=== PATIENT | female | born 1990 | race Asian ===

== ENCOUNTER 2019-10-11 08:02 | Inpatient (IN) ==
[2019-10-11] MEDS: LACTATED RINGER'S 1,000 ML IV PRN ×3 (11:00→12:18)
[2019-10-11] MEDS ORDERED: OXYTOCIN 30 UNITS/500 ML BAG IV PRN ×3 (11:03→19:27)
[2019-10-11] MEDS ORDERED: BUPIVACAINE 0.25% 30 ML VIAL ONE (11:18)
[2019-10-11] MEDS ORDERED: fentaNYL citrate 100 MCG/2 ML VIAL ONE (11:18)
[2019-10-11] MEDS ORDERED: ePHEDrine sulfate 50 MG/ML AMP ONE (11:18)
[2019-10-11] MEDS ORDERED: fentaNYL 2MCG/ML ROPIV 1.25MG/ML 100 ML BAG EPI ONE (11:18)
--- NOTE | 2019-10-11 11:23 | History & Physical Report ---
Date of Service October 11, 2019 Assessment & Plan (1) : Contractions have been getting more painful during her monitoring, cervix has changed, patient is asking for epidural. Will admit for labor. EFM/toco. IVF. labs. She is likely going to get an epidural. History of Present Illness Chief Complaint: labor Primary Care Provider: Mitzy Bowers MD 29yo @ 37 3/7 with regular ctx. No leaking of fluid, no vaginal bleeding. + movement. uncomplicated. Allergies Allergy/AdvReac Type Severity Reaction Status Date / Time No Known Drug Allergies Allergy none Verified 10/11/19 08:22 Home Medications Home Medications Medication Instructions Recorded Confirmed Type PNV cmb#95-ferrous fumarate-FA 1 tab PO DAILY 10/11/19 10/11/19 History [] Patient History Social History (Updated 05/04/19 @ 12:09 by Ute Wayne MD) Preferred Language: Kazakh Calenderer Required: No Beliefs That Will Affect Care: None marital status: Single marital status details: Same FOB of all pregnancies Current Living Situation: Significant Other Current Living Situation Comment: FOB and their two kids current occupational status: employed 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 Constitutional: WD/WN, vitals as above Respiratory: normal respiratory effort, lungs clear to auscultation no respiratory distress Cardiovascular: Rate/Rhythm: regular rate and regular rhythm Gastrointestinal (Abdomen): Inspection/Auscultation: abdomen normal to inspection Percussion/Palpation: abdomen soft; abdomen nontender Gravid. No s/s chorio or abruption. Skin: no rashes, warm and dry Psychiatric: A+Ox3, euthymic affect Results & Data Vital Signs (Past 12 Hours) Vital Signs Temp Pulse Resp BP 10/11/19 10:48 90 103/60 10/11/19 10:47 20 10/11/19 08:21 36.7 C 16 10/11/19 08:19 107 H 109/73
--- NOTE | 2019-10-11 11:35 | Anesthesiology Consultation ---
Date of Service October 11, 2019 Assessment & Plan Chart Review Chart Review: Acceptable Risk for Labor Epidural ASA ASA2 Proposed Anesthesia Anesthesia Type: Labor Epidural Risk / Benefits Reviewed With: PT / POA / Parent / Guardian, Accepts Plan and Informed Consent Obtained History Height/Weight Height: 5 ft 6 in Weight: 70.307 kg Allergies Allergy/AdvReac Type Severity Reaction Status Date / Time No Known Drug Allergies Allergy none Verified 10/11/19 08:22 Medications Home Medications Medication Instructions Recorded Confirmed Last Taken PNV cmb#95-ferrous fumarate-FA 1 tab PO DAILY 10/11/19 10/11/19 10/10/19 08:00 [] Past Medical History Medical History History of chlamydia Past Family History Family History Father Asthma Brother Asthma Social History Smoking Status: Former smoker Hx Alcohol Use: No Hx Substance Use: No Review of Systems denies fever/cough/ colds/ chest pain/ SOB/ JAZMIN denies CT/CVA/Seizure Physical Exam Vital Signs Last Vital Signs Temp 36.7 C 10/11/19 08:21 Pulse 93 H 10/11/19 11:56 Resp 20 10/11/19 10:47 BP 104/59 L 10/11/19 11:56 Pulse Ox 100 10/11/19 11:55 Testing Laboratory Results 10/11/19 11:24
[2019-10-11 11:37] LABS: Hemoglobin 10.4 g/dL (12.0-16.0); Mean Corpuscular Hemoglobin 30.1 pg (25-34); Mean Corpuscular Volume 92.5 fL (80-100); Mean Platelet Volume 10.4 fL (7.4-10.4); Platelet Count 213 K/uL (130-400); RDW Coefficient of Variation 13.7 % (11.5-14.5); Red Blood Count 3.46 M/uL (4.2-5.4); White Blood Count 11.93 K/uL (4.8-10.8)
[2019-10-11 11:39] LABS: Mean Corpuscular Hgb Conc 32.5 g/dL (32-36)
[2019-10-11] MEDS ORDERED: NALOXONE HCL 1 MG in SODIUM CHLORIDE 0.9% 1000ML 1,000 ML IV PRN (11:59)
[2019-10-11] MEDS ORDERED: ONDANSETRON INJ 2 MG/ML 2 ML VIAL IV PRN (11:59)
[2019-10-11] MEDS ORDERED: NALBUPHINE HCL INJ 10 MG/ML AMP IV PRN (11:59)
[2019-10-11] MEDS ORDERED: NALOXONE HCL 0.4 MG/1 ML VIAL/CARP IV PRN (11:59)
[2019-10-11] MEDS ORDERED: ePHEDrine sulfate 50 MG/ML AMP IV PRN (11:59)
[2019-10-11] MEDS ORDERED: DiphenhydrAMINE HCL 50 MG/ML VIAL IV PRN (11:59)
[2019-10-11] MEDS ORDERED: fentaNYL 2MCG/ML ROPIV 1.25MG/ML 100 ML BAG EPI PRN (11:59)
--- NOTE | 2019-10-11 13:59 | Obstetrical Progress Note ---
Date of Service October 11, 2019 Subjective Comfortable with epidural. FHT Cat 1 Reform - spaced out. SVE 5/70/-2. AROM clear fluid. Results & Data Vital Signs (Past 12 Hours) Vital Signs Temp Pulse Resp BP Pulse Ox 10/11/19 13:55 97 H 100 10/11/19 13:50 107 H 100 10/11/19 13:45 100 H 106/61 100 10/11/19 13:40 93 H 100 10/11/19 13:35 105 H 100 10/11/19 13:34 106 H 94/58 L 10/11/19 13:30 89 100 10/11/19 13:26 107 H 88/54 L 10/11/19 13:25 97 H 100 10/11/19 13:24 94 H 97/58 L 10/11/19 13:20 104 H 99 10/11/19 13:16 80 99/59 L 10/11/19 13:15 84 100 10/11/19 13:11 97 H 93/55 L 10/11/19 13:10 100 H 100 10/11/19 13:07 88 100/57 L 10/11/19 13:05 96 H 100 10/11/19 13:01 100 H 96/58 L 10/11/19 13:00 80 16 99 10/11/19 12:56 96 H 91/53 L 10/11/19 12:55 95 H 98 10/11/19 12:52 85 98/58 L 10/11/19 12:50 89 99 10/11/19 12:47 90 97/57 L 10/11/19 12:45 112 H 16 96 10/11/19 12:41 100 H 103/59 L 10/11/19 12:40 87 99 10/11/19 12:37 97 H 104/59 L 10/11/19 12:35 99 H 100 10/11/19 12:31 89 87/53 L 10/11/19 12:30 101 H 16 99 10/11/19 12:27 93 H 101/58 L 10/11/19 12:25 100 H 100/61 100 10/11/19 12:22 95 H 86/51 L 10/11/19 12:20 109 H 100 10/11/19 12:17 90 106/61 10/11/19 12:15 91 H 16 100 10/11/19 12:12 88 109/61 10/11/19 12:10 98 H 100 10/11/19 12:05 100 H 100 10/11/19 12:04 104 H 112/66 10/11/19 12:02 96 H 110/59 L 10/11/19 12:00 36.8 C 89 18 107/59 L 100 10/11/19 11:58 89 103/60 10/11/19 11:56 93 H 104/59 L 10/11/19 11:55 87 100 10/11/19 11:54 105 H 107/60 10/11/19 11:53 88 100/58 L 10/11/19 11:50 94 H 107/58 L 100 10/11/19 11:45 100 H 100 10/11/19 11:40 105 H 100 10/11/19 11:32 89 100 10/11/19 10:48 90 103/60 10/11/19 10:47 20 10/11/19 08:21 36.7 C 16 10/11/19 08:19 107 H 109/73 PG Care Time/CCT Total # of Minutes Spent Total Time Spent with Patient: Total time spent is greater than 50% in coordination of care (as documented) at patient's floor/unit and/or counseling patient:
--- NOTE | 2019-10-11 19:19 | Delivery Summary ---
Vaginal Delivery Summary Date of Service October 11, 2019 Vaginal Delivery Summary Vaginal Delivery Summary: Pre-delivery diagnoses: 29yo @ 37 12/07, spontaneous labor Post-delivery diagnoses: same Procedure: spontaneous vaginal delivery Surgeon: Pilar Wen DO Complications: none Findings: Viable male . Apgars: 9/9 . Weight pending, please see nursery records Estimated blood loss: 300ml Description of delivery: The patient progressed to complete with epidural anesthesia. She then began to push. She spontaneously vaginally delivered a viable from the cephalic presentation. The head delivered in URBANO position. Nuchal cord x 1 easily reduced, at the same time, posterior hand delivered spontaneously. Posterior (right) arm swept medially via elbow and delivered. Then, the anterior shoulder delivered, followed by the body. The ba by was placed on mother's abdomen and a spontaneous cry was heard. Delayed cord clamping was employed, and the cord was doubly clamped and cut. Cord blood was obtained. The placenta was delivered spontaneously intact with a 3-vessel cord. The uterus and vagina were swept of clots and debris. IV pitocin was given. The uterus became firm. The cervix, vagina, and perineum were inspected and no lacerations were noted. Excellent hemostasis was observed. The mother and baby are recovering in stable and good condition in the room. Sponge and instrument counts were correct x 2. DO DAISY Briseno
[2019-10-11] MEDS ORDERED: BENZOCAINE 20% AER SPR 82.5 GM CAN EXT PRN (19:27)
[2019-10-11] MEDS ORDERED: DIPHTHERIA/TETANUS/PERTUSSIS 0.5 ML SYR/VIAL IM ONE (19:27)
[2019-10-11] MEDS ORDERED: ACETAMINOPHEN 325 MG TAB PO PRN (19:27)
[2019-10-11] MEDS ORDERED: bisacodyL 10 MG SUPP PR PRN (19:27)
[2019-10-11] MEDS ORDERED: OXYCODONE/ACETAMINOPHEN 5mg/325mg TAB PO PRN (19:27)
[2019-10-11] MEDS ORDERED: HYDROCORTISONE ACETATE 25 MG SUPP PR PRN (19:27)
[2019-10-11] MEDS ORDERED: SUPERCREAM 0.870% 15 GM JAR EXT PRN (19:27)
--- NOTE | 2019-10-11 19:52 | Anesthesia Procedure Note ---
Date of Service October 11, 2019 Anesthesia Post Epidural Note Vital Signs Vital Signs: Temp Pulse Resp BP Pulse Ox 37.1 C 114 H 18 117/63 100 10/11/19 17:05 10/11/19 19:43 10/11/19 18:30 10/11/19 19:43 10/11/19 19:13 Notes Mental Status: alert / awake / arousable and participated in evaluation Patient Amnestic to Procedure: Yes Nausea / Vomiting: adequately controlled Pain: adequately controlled Airway Patency, RR, SpO2: stable & adequate BP & HR: stable & adequate Hydration State: stable & adequate Anesthetic Complications: no major complications apparent and Pt Satisfied with anesthetic care
[2019-10-11] MEDS: IBUPROFEN 600 MG TAB PO PRN (21:37)
[2019-10-11] MEDS: DOCUSATE SODIUM 100 MG CAP PO SCH (21:37)
--- NOTE | 2019-10-12 06:58 | Obstetrical Progress Note ---
Date of Service October 12, 2019 Assessment & Plan (1) : PPD#1 doing well. Would like to possibly go home today, would need to be sometime after 7pm (24h after delivery), and would also depend on peds discharge. Subjective Ambulation: ambulating normally Voiding: no voiding problems Diet Tolerance:: regular diet Lochia:: Moderate Feeding Type:: breast feeding Review of Systems All systems reviewed & are unremarkable except as noted in HPI & below Physical Exam Constitutional WD/WN, vitals as above no acute distress Respiratory normal respiratory effort Cardiovascular Rate/Rhythm: regular rate and regular rhythm Gastrointestinal (Abdomen) Inspection/Auscultation: abdomen normal to inspection; abdomen not distended Percussion/Palpation: abdomen soft Genitourinary OB Exam Abdomen: + fundal height Fundus: + firm; not tender Results & Data Vital Signs (Past 12 Hours) Vital Signs Temp Pulse Pulse Resp BP BP Pulse Ox 10/12/19 04:04 36.6 C 93 H 18 91/55 L 97 10/11/19 23:15 37.1 C 98 H 16 103/66 98 10/11/19 21:45 36.5 C 118 H 20 111/59 L 10/11/19 21:28 118 H 111/59 L 10/11/19 21:22 126 H 115/59 L 10/11/19 21:19 37.5 C 18 10/11/19 21:06 105 H 115/64 10/11/19 20:55 100 H 111/64 10/11/19 20:53 123 H 113/57 L 10/11/19 20:49 18 10/11/19 20:44 110 H 127/58 L 10/11/19 20:23 113 H 113/58 L 10/11/19 20:19 18 10/11/19 20:13 109 H 112/57 L 10/11/19 20:04 107 H 18 113/57 L 10/11/19 19:53 107 H 120/69 10/11/19 19:49 18 10/11/19 19:43 114 H 117/63 10/11/19 19:34 18 10/11/19 19:33 116 H 114/65 10/11/19 19:23 121 H 114/56 L 10/11/19 19:19 37.4 C 116 H 18 114/57 L 10/11/19 19:13 117 H 100 10/11/19 19:08 128 H 99 10/11/19 19:01 122 H 116/56 L 10/11/19 19:00 135 H 100
[2019-10-12 07:11] LABS: Hematocrit (blood only) 30.4 % (37-47)
[2019-10-12] MEDS: PRENATAL VITAMIN 1 TAB PO SCH (07:54)
[2019-10-12] MEDS: DOCUSATE SODIUM 100 MG CAP PO SCH ×2 (07:54→20:23)
[2019-10-12] MEDS: IBUPROFEN 600 MG TAB PO PRN ×2 (09:55→14:28)
[2019-10-12] MEDS ORDERED: bisacodyL 5 MG TABEC PO SCH (20:00)
[2019-10-13] MEDS: IBUPROFEN 600 MG TAB PO PRN (04:25)
--- NOTE | 2019-10-13 07:18 | Obstetrical Progress Note ---
Date of Service October 13, 2019 Assessment & Plan (1) Vaginal delivery: Doing well. Plan d/c home. f/u 6 weeks, instructions given. Day #:: 2 Subjective Ambulation: ambulating normally Voiding: no voiding problems Passing Gas:: Yes Diet Tolerance:: regular diet Lochia:: Small Feeding Type:: breast feeding Feels well Physical Exam Constitutional WD/WN, vitals as above Cardiovascular Extremities: no calf tenderness and no edema Gastrointestinal (Abdomen) soft, nt, nd ff/nt at 1 below u Psychiatric A+Ox3, euthymic affect Results & Data Vital Signs (Past 12 Hours) Vital Signs Temp Pulse Resp BP 10/12/19 23:20 37.0 C 89 16 96/65 L 10/12/19 20:15 36.5 C 91 H 16 103/68
[2019-10-13] MEDS: DOCUSATE SODIUM 100 MG CAP PO SCH (07:52)
[2019-10-13] MEDS: PRENATAL VITAMIN 1 TAB PO SCH (07:52)
== END 2019-10-13 14:10 | disposition home or self-care (01) | DRG 807 ==
LOC: OPB 08:02 → 4S1 08:03 → 4S2 21:44

== ENCOUNTER 2021-09-30 07:40 | Inpatient (IN) ==
--- NOTE | 2021-09-30 08:10 | History & Physical Report ---
Date of Service September 30, 2021 Assessment & Plan (1) Encounter for induction of labor: Plan: Pt is a 30 y/o presenting to L&D for IOL at 39 weeks gestation. -Admit to the L&D floor -Augment labor with pitocin -Epidural available as needed -AROM if needed -O+, GBS-, Rubella immune Admission and Anticipated Discharge Date Admission Date: September 30, 2021 History of Present Illness Chief Complaint: IOL Primary Care Provider: Mitzy Bowers MD Pt is a 30 y/o presents to L&D for elective IOL at 39 wks gestation. Pt has had no complications with this thus far. Pt has history of infants for her first and second child. Pt reports not gush of fluid or bloody discharge today, but does report bloody show 2 days ago. Pt is O+ and GBS- negative. Reports positive movement, but no consistent contractions. Pt denies fever, chills, nausea, vomiting, chest pain, or SOB. OB Labs: Blood Type O Positive 04/17/21 Antibody Screen NEGATIVE 04/17/21 Hemoglobin 10.7 g/dL (12.0-16.0) L 07/16/21 Hematocrit 32.4 % (37-47) L 07/16/21 Mean Corpuscular Volume 94.1 fL (80-100) 04/17/21 Platelet Count 305 K/uL (130-400) 04/17/21 Rubella IgG Antibody Immune (Immune) 04/17/21 Rapid Plasma Reagin Nonreactive (Nonreactive) 04/17/21 Hepatitis B Surface Antigen Neg (Neg) 04/17/21 HIV (1&2) Ab and P24 Ag, 4th Gener Neg (Neg) 04/17/21 Glucose 1 Hour 50 gm Load 116 mg/dl (70-130) 07/16/21 OB Optional Labs: Chlamydia trachomatis RNA NOT DETECTED (NOT DETECTED) 04/17/21 Neisseria gonorrhoeae RNA NOT DETECTED (NOT DETECTED) 04/17/21 Allergies Allergy/AdvReac Type Severity Reaction Status Date / Time No Known Drug Allergies Allergy none Verified 09/29/21 09:30 Home Medications Medication Instructions Recorded Confirmed Type vit no.95-ferrous 1 tab PO DAILY 10/11/19 09/29/21 History fumarate 28 mg-folic acid 800 mcg tablet () Past Med/Surg History Medical History (Updated 09/30/21 @ 09:04 by Urbano Garcia DO) History of chlamydia Vaginal delivery Family History (Updated 04/15/21 @ 14:11 by Jewell Murillo, GRACY) Father Asthma Brother Asthma Grandmother (Paternal) Heart disease Myocardial infarction Aunt Heart disease Denies family history of Ovarian cancer Prostate cancer Breast cancer Colorectal cancer Cancer Social History (Updated 04/15/21 @ 14:12 by Jewell Murillo, RN) Smoking Status: Former smoker Second Hand Exposure: No; Do You Dip or Chew Tobacco: No; Tobacco Cessation Education Requested by Patient: No Hx Alcohol Use: Yes (not used for 5 years) Hx Substance Use: No Preferred Language: Wolof Communication Ability: Effective Visual Impairment: No Limitations Hearing Ability: Normal Floor Trader Required: No Beliefs That Will Affect Care: None marital status: Single marital status details: Same FOB of all pregnancies. 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 No murmurs appreciated. Respiratory: Clear to auscultation b/l with good air flow entry, symmetric chest rise and fall. No wheezes or crackles. No increased work of breathing or accessory muscle use Abdomen: Gravid, soft, nontender. No guarding or CVA tenderness Skin: No rashes or lesions Extremities: Warm, dry, well-perfused with capillary refill <2s b/l. No lower extremity edema, erythema or swelling. Negative Star's sign b/l. Pelvic Exam per Dilation:3 cm Effacement:75% Station:-2 FHR Baseline: 140 BPM Variability:good Supervising Physician Co-Signing Physician Notes Resident Physician Supervision Note: I interviewed and examined the patient. Discussed with Dr. Garcia and agree with findings and plan as documented in the note. Any exceptions or clarifications are listed here: 30 y/o at 39 wga presents for eIOL. +FM; denies regular ctx, LOF, VB. VSS, SVE /-2. GBS neg. Plan to start pit, epidural PRn Documented By: Stephanie Joseph MD
[2021-09-30] MEDS ORDERED: OXYTOCIN 30 UNITS/500 ML BAG IV PRN ×3 (08:16→19:14)
[2021-09-30] MEDS ORDERED: LACTATED RINGER'S 1,000 ML IV PRN (08:16)
[2021-09-30 09:13] LABS: Hematocrit (blood only) 34.2 % (37-47); Hemoglobin 10.4 g/dL (12.0-16.0); Mean Corpuscular Hemoglobin 26.2 pg (25-34); Mean Corpuscular Hgb Conc 30.4 g/dL (32-36); Mean Corpuscular Volume 86.1 fL (80-100); Mean Platelet Volume 10.8 fL (7.4-10.4); Nucleated RBC # (auto) 0.02 K/uL (0-0); Nucleated RBC % (auto) 0.2 %; Platelet Count 277 K/uL (130-400); RDW Standard Deviation 46.8 fL (36.4-46.3); Red Blood Count 3.97 M/uL (4.2-5.4)
[2021-09-30] MEDS ORDERED: fentaNYL citrate 100 MCG/2 ML VIAL ONE ×2 (12:28→12:35)
[2021-09-30] MEDS ORDERED: BUPIVACAINE 0.25% 30 ML VIAL ONE (12:34)
[2021-09-30] MEDS ORDERED: SODIUM CHLORIDE 0.9% INJ 10 ML VIAL ONE (12:34)
[2021-09-30] MEDS ORDERED: ePHEDrine sulfate 50 MG/ML AMP ONE (12:34)
[2021-09-30] MEDS ORDERED: fentaNYL 2MCG/ML ROPIVACAINE 1.25MG/ML 100 ML BAG EPI ONE (12:36)
[2021-09-30] MEDS ORDERED: ONDANSETRON INJ 2 MG/ML 2 ML VIAL IV PRN (13:03)
[2021-09-30] MEDS ORDERED: ePHEDrine sulfate 50 MG/ML AMP IV PRN (13:03)
[2021-09-30] MEDS ORDERED: NALBUPHINE HCL INJ 10 MG/ML AMP IV PRN (13:03)
[2021-09-30] MEDS ORDERED: NALOXONE HCL 1 MG in SODIUM CHLORIDE 0.9% 1000ML 1,000 ML IV PRN (13:03)
[2021-09-30] MEDS ORDERED: diphenhydrAMINE 50 MG/ML VIAL IV PRN (13:03)
[2021-09-30] MEDS ORDERED: NALOXONE HCL 0.4 MG/1 ML VIAL/CARP IV PRN (13:03)
[2021-09-30] MEDS ORDERED: fentaNYL 2MCG/ML ROPIVACAINE 1.25MG/ML 100 ML BAG EPI PRN (13:03)
--- NOTE | 2021-09-30 13:03 | Anesthesiology Consultation ---
Date of Service September 30, 2021 Assessment & Plan Chart Review Chart Review: Acceptable Risk for Surgery and Patient NOT seen in Pre Admission Testing Consults Requested none ASA ASA2 Proposed Anesthesia Anesthesia Type: Labor Epidural Risk / Benefits Reviewed With: PT / POA / Parent / Guardian, Accepts Plan and Informed Consent Obtained History Height/Weight Height: 5 ft 3 in Weight: 72.938 kg Allergies Allergy/AdvReac Type Severity Reaction Status Date / Time No Known Drug Allergies Allergy none Verified 09/29/21 09:30 Medications Home Medications Medication Instructions Recorded Confirmed Last Taken vit no.95-ferrous 1 tab PO DAILY 10/11/19 09/29/21 10/10/19 08:00 fumarate 28 mg-folic acid 800 mcg tablet () Active Medications Generic Name Dose Route Start Last Admin Trade Name Freq PRN Reason Stop Dose Admin Oxytocin 30 units in 500 mls @ 5 mls/hr 09/30/21 08:16 09/30/21 11:30 Pitocin IV 10/02/21 08:15 0.3 units/hr .Q24H PRN 5 mls/hr Labor Induction/Augmentation Titration Protocol 0.3 UNITS/HR Lactated Ringer's 1,000 mls @ 125 mls/hr 09/30/21 08:16 09/30/21 10:02 Lr IV 10/02/21 08:15 125 mls/hr .Q8H PRN Administration L&D Protocol Protocol Past Medical History Medical History History of chlamydia Vaginal delivery Exercise / Class Metabolic Activity II 4-5 Yardwork/Stairs/Walk up hill Past Family History Family History Father Asthma Brother Asthma Grandmother (Paternal) Heart disease Myocardial infarction Aunt Heart disease Denies family history of Ovarian cancer Prostate cancer Breast cancer Colorectal cancer Cancer Past Anesthesia History No Hx of Anesthesia Complications and No Family Hx of Anesthesia Complications History of PONV No Hx of PONV and No Hx of Motion Sickness Social History Smoking Status: Former smoker Do You Dip or Chew Tobacco: No Hx Alcohol Use: Yes (not used for 5 years) Hx Substance Use: No Physical Exam Vital Signs Last Vital Signs Temp 36.6 C 09/30/21 08:15 Pulse 104 H 12/29/21 13:01 Resp 18 09/30/21 11:30 BP 106/71 09/30/21 13:01 Pulse Ox 97 09/30/21 12:59 ENMT Mouth: no dentition abnormality Thyromental Distance: > or= 3.5 Finger Breadths Mallampati Class: II Neck normal visual inspection Respiratory normal respiratory effort Auscultation: lungs clear to auscultation bilaterally Cardiovascular Rate/Rhythm: regular rate and regular rhythm Psychiatric Orientation: alert Testing Laboratory Results 09/30/21 08:40 Blood Type O Positive 09/30/21 08:40 Antibody Screen NEGATIVE 09/30/21 08:40
--- NOTE | 2021-09-30 14:22 | Labor Progress Brief Note ---
Date of Service September 30, 2021 Subjective Comfortable w/ epidural Assessment & Plan (1) Encounter for induction of labor: Plan: 30 y/o at 39 wga, eIOL VSS Fetus cat 1 Labor - s/p arom, continue pit augmentation GBS neg Epidural in place Admission and Anticipated Discharge Date Admission Date: September 30, 2021 Physical Exam Genitourinary: Manual OB Exam: + cervical dilation 4 cm, + cervical effacement 70%, + station -2 and + amniotic fluid (AROM clear) OB Exam Monitor Tracing: + external FHT monitor used, + external uterine monitor used (q5) and + category I (125/mod/+accel/-decel) Results & Data ([facility]) Vital Signs (Past 12 Hours) Vital Signs Temp Pulse Resp BP Pulse Ox 09/30/21 14:19 84 98 09/30/21 14:14 112 H 110/63 98 09/30/21 14:09 101 H 97 09/30/21 14:04 108 H 98 09/30/21 13:59 87 97 09/30/21 13:58 78 102/60 09/30/21 13:54 96 H 97 09/30/21 13:49 93 H 98 09/30/21 13:44 97 H 97 09/30/21 13:43 100 H 98/55 L 09/30/21 13:39 93 H 97 09/30/21 13:34 89 97 09/30/21 13:30 97.9 F 18 97 09/30/21 13:29 124 H 99 09/30/21 13:26 107 H 98/60 L 09/30/21 13:24 92 H 97 09/30/21 13:21 100 H 90/50 L 09/30/21 13:19 105 H 97 09/30/21 13:17 110 H 20 118/73 09/30/21 13:14 112 H 95 09/30/21 13:10 100 H 99/62 L 09/30/21 13:09 109 H 96 09/30/21 13:07 95 H 109/69 09/30/21 13:05 117 H 101/63 09/30/21 13:04 114 H 20 97 09/30/21 13:03 103 H 110/67 09/30/21 13:01 104 H 106/71 09/30/21 12:59 113 H 111/78 97 09/30/21 12:55 95 H 113/77 09/30/21 12:53 68 18 105/70 09/30/21 12:34 74 105/65 09/30/21 12:04 81 112/77 09/30/21 11:34 73 102/65 09/30/21 11:30 18 09/30/21 11:00 18 09/30/21 10:56 67 110/66 09/30/21 08:30 20 09/30/21 08:15 97.9 F 93 H 18 111/68 09/30/21 08:12 93 H 18 111/68 Coding Level of Care Code None Diagnoses Encounter for induction of labor Z34.90
--- NOTE | 2021-09-30 15:59 | Labor Progress Brief Note ---
Date of Service September 30, 2021 Subjective Comfortable w/ epidural Assessment & Plan (1) Encounter for induction of labor: Plan: 30 y/o at 39 wga, eIOL VSS Fetus cat 2 but reassuring Labor - good progression, continue to monitor GBS neg Epidural in place Admission and Anticipated Discharge Date Admission Date: September 30, 2021 Physical Exam Genitourinary: Manual OB Exam: + cervical dilation 9 cm, + cervical effacement 90% and + station 0 OB Exam Monitor Tracing: + external FHT monitor used, + external uterine monitor used (q4) and + category II (125/mod/+accel/intermittent early/variables) Results & Data ([facility]) Vital Signs (Past 12 Hours) Vital Signs Temp Pulse Resp BP Pulse Ox 09/30/21 15:54 106 H 97 09/30/21 15:49 112 H 98 09/30/21 15:44 88 98 09/30/21 15:39 93 H 99 09/30/21 15:37 108 H 113/71 09/30/21 15:34 98 H 99 09/30/21 15:29 87 99 09/30/21 15:24 89 99 09/30/21 15:22 85 96/55 L 09/30/21 15:19 86 98 09/30/21 15:14 104 H 98 09/30/21 15:09 97 H 99 09/30/21 15:06 93 H 94/54 L 09/30/21 15:04 92 H 98 09/30/21 15:00 97.9 F 20 98 09/30/21 14:59 93 H 98 09/30/21 14:54 82 96 09/30/21 14:51 86 85/53 L 09/30/21 14:49 84 97 09/30/21 14:46 75 84/54 L 09/30/21 14:44 96 H 78/50 L 98 09/30/21 14:41 84 94 09/30/21 14:39 101 H 97 09/30/21 14:34 88 97 09/30/21 14:29 80 97 09/30/21 14:26 93 H 94 09/30/21 14:24 93 H 98 09/30/21 14:19 84 98 09/30/21 14:14 112 H 110/63 98 09/30/21 14:09 101 H 97 09/30/21 14:04 108 H 98 09/30/21 13:59 87 97 09/30/21 13:58 78 102/60 09/30/21 13:54 96 H 97 09/30/21 13:49 93 H 98 09/30/21 13:44 97 H 97 09/30/21 13:43 100 H 98/55 L 09/30/21 13:39 93 H 97 09/30/21 13:34 89 97 09/30/21 13:30 97.9 F 18 97 09/30/21 13:29 124 H 99 09/30/21 13:26 107 H 98/60 L 09/30/21 13:24 92 H 97 09/30/21 13:21 100 H 90/50 L 09/30/21 13:19 105 H 97 09/30/21 13:17 110 H 20 118/73 09/30/21 13:14 112 H 95 09/30/21 13:10 100 H 99/62 L 09/30/21 13:09 109 H 96 09/30/21 13:07 95 H 109/69 09/30/21 13:05 117 H 101/63 09/30/21 13:04 114 H 20 97 09/30/21 13:03 103 H 110/67 09/30/21 13:01 104 H 106/71 09/30/21 12:59 113 H 111/78 97 09/30/21 12:55 95 H 113/77 09/30/21 12:53 68 18 105/70 09/30/21 12:34 74 105/65 09/30/21 12:04 81 112/77 09/30/21 11:34 73 102/65 09/30/21 11:30 18 09/30/21 11:00 18 09/30/21 10:56 67 110/66 09/30/21 08:30 20 09/30/21 08:15 97.9 F 93 H 18 111/68 09/30/21 08:12 93 H 18 111/68 Coding Level of Care Code None Diagnoses Encounter for induction of labor Z34.90
--- NOTE | 2021-09-30 17:24 | Delivery Summary ---
Vaginal Delivery Summary Date of Service September 30, 2021 Vaginal Delivery Summary [facility] PREOPERATIVE DIAGNOSIS: 1. Single intrauterine at 39 wga 2. Elective induction of labor POSTOPERATIVE DIAGNOSIS: 1. Single intrauterine at 39 wga 2. Elective induction of labor 3. Delivered PROCEDURE: 1. Normal spontaneous vaginal delivery. SURGEON: Stephanie Joseph MD ANESTHESIA: Epidural. ESTIMATED BLOOD LOSS: 200 mL FLUIDS: Continuous LR. URINE OUTPUT: None. COMPLICATIONS: None. CONDITION: Stable. INDICATIONS: 30 y/o at 39 wga presented for elective induction of labor. On arrival she was 3cm. She was started on pitocin and received an epidural for pain control. She then underwent artificial rupture of membranes and progressed quickly to complete and desired to push. FINDINGS: A viable female infant, weight pending with Apgars of 8 and 9 at 1 and 5 minutes respectively. SPECIMEN: Cord blood OPERATIVE REPORT: The patient progressed to 10 cm, 100% effaced and +2 station, pushed over intact perineum with anesthesia to deliver a viable female , weight and Apgars as above. Head of delivered in NNAMDI position. Loose nuchal cord was noted and delivered through. Body and shoulders were delivered without difficulty. was delivered to maternal abdomen and nursing staff. Delayed cord clamping was performed for 60 seconds. Cord was clamped and cut. Cord blood was obtained. Placenta delivered spontaneously intact with 3-vessel cord. IV oxytocin and fundal massage were given for excellent hemostasis. Vagina, cervix, perineum, and placenta were inspected. A hemostatic periurethral laceration was noted and not needed to be repaired. Sponge and needle counts correct x2. No sponges were left behind. Mother and stable in immediate period. [facility] [place] Delivery Charge Vaginal Delivery Codes: 29466 global code for the antepartum, delivery, and post- Delivery Type Details: [facility]
--- NOTE | 2021-09-30 18:12 | Anesthesia Procedure Note ---
Date of Service September 30, 2021 Anesthesia Post Epidural Note Vital Signs Vital Signs: Temp Pulse Resp BP Pulse Ox 36.6 C 95 H 20 101/66 97 09/30/21 16:56 09/30/21 17:38 09/30/21 17:38 09/30/21 17:38 09/30/21 17:09 Notes Mental Status: alert / awake / arousable Nausea / Vomiting: adequately controlled Pain: adequately controlled Airway Patency, RR, SpO2: stable & adequate BP & HR: stable & adequate Hydration State: stable & adequate Neuraxial Anesthesia: was administered and sensory block is resolving Anesthetic Complications: no major complications apparent and Pt Satisfied with anesthetic care Epidural: Removed without complications and With tip intact
[2021-09-30] MEDS ORDERED: ACETAMINOPHEN 325 MG TAB PO PRN (19:14)
[2021-09-30] MEDS ORDERED: HYDROCORTISONE ACETATE 25 MG SUPP PR PRN (19:14)
[2021-09-30] MEDS ORDERED: SUPERCREAM 0.870% 15 GM JAR EXT PRN (19:14)
[2021-09-30] MEDS ORDERED: DIPHTHERIA/TETANUS/PERTUSSIS 0.5 ML SYR/VIAL IM ONE (19:14)
[2021-09-30] MEDS ORDERED: BENZOCAINE 20% AER SPR 82.5 GM CAN EXT PRN (19:14)
[2021-09-30] MEDS ORDERED: bisacodyL 10 MG SUPP PR PRN (19:14)
[2021-09-30] MEDS: DOCUSATE SODIUM 100 MG CAP PO SCH (20:21)
[2021-09-30] MEDS: IBUPROFEN 600 MG TAB PO PRN (21:28)
[2021-10-01] MEDS: IBUPROFEN 600 MG TAB PO PRN ×4 (03:16→20:03)
--- NOTE | 2021-10-01 05:55 | Obstetrical Progress Note ---
Date of Service October 01, 2021 Assessment & Plan (1) Encounter for care and examination after delivery: Plan: 31 yo , now , PPD 1 s/p at 39weeks -Possible D/C later in the day as she delivered at 5 PM yesterday, pt currently wishes to stay, but if changes mind D/C orders in place. -Continue routine care -Vitals reviewed- HDS, afebrile -O+, GBS, Rubella immune -Encourage ambulation, regular diet -Pain control with ibuprofen, acetaminophen PRN -Encouraged and discussed benefits of -F/u in [address] Joseph Admission and Anticipated Discharge Date Admission Date: September 30, 2021 Supervising Physician Co-Signing Physician Notes Resident Physician Supervision Note: I interviewed and examined the patient. Discussed with Dr. Garcia and agree with findings and plan as documented in the note. Any exceptions or clarifications are listed here: PP1 s/p , doing well. Rating pain high but resting fairly comfortably, taken ibuprofen twice since delivery, using heat packs. Discussed additional use of tylenol to help as well. Pt desires to stay until tomorrow, continue routine pp care Documented By: Stephanie Joseph MD Subjective PPD 1 s/p . Patient seen and examined at bedside. Reports no acute overnight events. Ambulating and voiding. Passing gas w/o BM as of yet. Regular diet w/o N/V. Lochia moderate per patient. Bottle feeding by choice w/o complications. Pain 9/10 that does improve somewhat with motrin, has not been taking tylenol. Utilizing heating pad with some additional benefit. Review of Systems Review of Systems: Denies fevers/chills. Denies dyspnea, cough. Denies chest pain. Denies breast pain or discharge. Denies dysuria. Denies headache. Denies back pain. Physical Exam Physical Exam: General: Alert, oriented, no acute distress Cardiac: Regular rate and rhythm, normal S1, S2. No murmurs appreciated. Respiratory: Clear to auscultation b/l with good air flow entry, symmetric chest rise and fall. No wheezes or crackles. No increased work of breathing or acce ssory muscle use Abdomen: Soft, nontender, nondistended. Fundus firm and palpable at level of umbilicus. No guarding or rebound. Skin: No rashes or lesions Extremities: Warm, dry, well-perfused with capillary refill <2s b/l. No lower extremity edema, erythema or swelling. Negative Star's sign b/l. Results & Data ([facility]) Vital Signs (Past 12 Hours) Vital Signs Temp Pulse Resp BP Pulse Ox 10/01/21 03:15 36.6 C 86 18 103/67 99 09/30/21 23:30 36.6 C 85 18 96/61 L 98 09/30/21 20:00 36.4 C L 83 18 109/73 98 09/30/21 18:15 36.5 C 85 18 100/68 98
[2021-10-01 06:06] LABS: Hematocrit (blood only) 30.2 % (37-47); Hemoglobin 9.3 g/dL (12.0-16.0); Mean Corpuscular Hemoglobin 26.5 pg (25-34); Mean Corpuscular Hgb Conc 30.8 g/dL (32-36); Mean Platelet Volume 10.6 fL (7.4-10.4); Platelet Count 245 K/uL (130-400); RDW Coefficient of Variation 15.2 % (11.5-14.5); RDW Standard Deviation 46.9 fL (36.4-46.3); Red Blood Count 3.51 M/uL (4.2-5.4); White Blood Count 13.83 K/uL (4.8-10.8)
[2021-10-01] MEDS: DOCUSATE SODIUM 100 MG CAP PO SCH ×2 (07:54→20:04)
[2021-10-01] MEDS: PRENATAL VITAMIN 1 TAB PO SCH (07:54)
[2021-10-01] MEDS: FERROUS SULFATE 325 MG TAB PO SCH (07:55)
[2021-10-01] MEDS ORDERED: bisacodyL 5 MG TABEC PO SCH (20:00)
--- NOTE | 2021-10-02 05:42 | Obstetrical Progress Note ---
Date of Service October 02, 2021 Assessment & Plan (1) Encounter for care and examination after delivery: Plan: 31 yo , now , PPD 2 s/p at 39weeks -Expect D/c today -Continue routine care -Vitals reviewed- HDS, afebrile -O+, GBS, Rubella immune -Encourage ambulation, regular diet -Pain control with ibuprofen, acetaminophen PRN -Encouraged and discussed benefits of -F/u in [address] Joseph Admission and Anticipated Discharge Date Admission Date: September 30, 2021 Supervising Physician Co-Signing Physician Notes Resident Physician Supervision Note: I interviewed and examined the patient. Discussed with Dr. Garcia and agree with findings and plan as documented in the note. Any exceptions or clarifications are listed here: [ ] Documented By: Ute Wayne MD, FACOG Subjective PPD 2 s/p . Patient seen and examined at bedside. Reports no acute overnight events. Ambulating and voiding. Passing gas w/o BM as of yet. Regular diet w/o N/V. Lochia moderate per patient. Bottle feeding by choice w/o complications. Pain 2/10 that does improve with motrin, has not been taking tylenol. Utilizing heating pad with some additional benefit. Review of Systems Review of Systems: Denies fevers/chills. Denies dyspnea, cough. Denies chest pain. Denies breast pain or discharge. Denies dysuria. Denies headache. Denies back pain. Physical Exam Physical Exam: General: Alert, oriented, no acute distress Cardiac: Regular rate and rhythm, normal S1, S2. No murmurs appreciated. Respiratory: Clear to auscultation b/l with good air flow entry, symmetric chest rise and fall. No wheezes or crackles. No increased work of breathing or accessory muscle use Abdomen: Soft, nontender, nondistended. Fundus firm and palpable at level of umbilicus. No guarding or rebound. Skin: No rashes or lesions Extremities: Warm, dry, well-perfused with capillary refill <2s b/l. No lower extremity edema, erythema or swelling. Negative Star's sign b/l. Results & Data ([facility]) Vital Signs (Past 12 Hours) Vital Signs Temp Pulse Resp BP Pulse Ox 10/01/21 23:40 36.5 C 74 17 101/67 100 10/01/21 20:00 36.5 C 89 16 111/68 99
[2021-10-02 06:50] LABS: Hematocrit (blood only) 34.1 % (37-47); Hemoglobin 10.4 g/dL (12.0-16.0)
[2021-10-02] MEDS: FERROUS SULFATE 325 MG TAB PO SCH (07:54)
[2021-10-02] MEDS: DOCUSATE SODIUM 100 MG CAP PO SCH (07:54)
[2021-10-02] MEDS: PRENATAL VITAMIN 1 TAB PO SCH (07:54)
== END 2021-10-02 12:40 | disposition home or self-care (01) | DRG 807 ==
LOC: 4S1 07:40 → 4S2 18:01